=== PATIENT | female | born 1950 | race Caucasian/White ===

== ENCOUNTER → 2016-09-12 | Outpatient (CLI) | payer MEDICARE, BC ==
--- NOTE | 2016-09-12 17:13 | Diagnostic Imaging Report ---
EXAMINATION: DEXA scan. INDICATION: osteopenia TECHNIQUE: Bone mineral density estimated based on dual energy radiography over the lumbar spine and femoral necks, was performed. FINDINGS: The lumbar spine T-score is -2.2. This is 6% decreased density measurement compared to 06/07/2011. T score over the left femoral neck is -0.6 and on the right is -0.9. This is 6.7% improved density measurement compared to 2010. IMPRESSION: Osteopenia.. Dictated by: Dictated on workstation # [id number]
== END ==
LOC: RAD 09:04
PROVIDERS: ATTEND Family Medicine
DX: M85.88 Other specified disorders of bone density and structure, other site (principal)
CPT/HCPCS: 77080; 93005

== ENCOUNTER → 2016-10-24 | Outpatient (CLI) | payer MEDICARE ==
--- NOTE | 2016-10-24 16:09 | Diagnostic Imaging Report ---
PROCEDURE: Lung cancer screening CT chest without contrast. TECHNIQUE: Multiple contiguous axial images were obtained through the chest without the use of intravenous contrast. This is performed with a low-dose protocol. INDICATION: Currently asymptomatic patient with 30 pack years history of smoking COMPARISON: None FINDINGS: The lungs demonstrate no masses, significant consolidation, or suspicious nodule. Minimal nonspecific focal scarring is seen in the lingula with no significant interstitial lung disease. No emphysema changes. No bronchiectasis. The heart size is normal. No mediastinal mass or significantly enlarged lymph nodes seen. No obvious hilar lymphadenopathy adjacent to the unenhanced hilar vessels. No axillary lymphadenopathy. No pleural or pericardial effusion. Mild degenerative changes of the thoracic spine seen. IMPRESSION: No significant abnormality. Lung Rads Category 2. Benign findings. Recommendations: Annual screening low-dose CT scan. Dictated by: Dictated on workstation # [id number]
== END ==
LOC: RAD 12:25
PROVIDERS: ATTEND Family Medicine
DX: Z12.2 Encounter for screening for malignant neoplasm of respiratory organs (principal); Z87.891 Personal history of nicotine dependence

== ENCOUNTER → 2017-09-26 | Outpatient (CLI) | payer MEDICARE ==
--- NOTE | 2017-09-26 18:57 | Diagnostic Imaging Report ---
INDICATION: Routine screening. Comparison is made with prior study from 10/28/2014 and 08/13/2012. The current study was also evaluated with a Computer Aided Detection (CAD) system. FINDINGS: Scattered fibroglandular densities are identified bilaterally. Biopsy clip in the outer right breast is noted. There are benign calcifications bilaterally. No mass or malignant-appearing microcalcifications are seen. The axillae are unremarkable. IMPRESSION: No mammographic features suspicious for malignancy are identified. ACR BI-RADS Category 2: Benign findings. Result letter will be mailed to the patient. Note: At least 10% of breast cancer is not imaged by mammography. Dictated by: Dictated on workstation # [id number]
== END ==
LOC: RAD 10:00
PROVIDERS: ATTEND Family Medicine
DX: Z12.31 Encounter for screening mammogram for malignant neoplasm of breast (principal)
CPT/HCPCS: 77067

== ENCOUNTER 2018-11-11 10:00 | Outpatient (CLI) | payer MEDICARE ==
[~2018-11-11] VITALS: Ht 170.2 cm; Wt 83.9 kg
[2018-11-11] MEDS ORDERED: LEVO125T PO (10:41)
[2018-11-11] MEDS ORDERED: PANT20TA3 PO (10:41)
[2018-11-11] MEDS ORDERED: LEVO150T6 PO (12:50)
[2018-11-11] MEDS ORDERED: ACET-2650 PO (12:50)
== END 2018-11-11 12:59 | disposition home or self-care (01) ==
LOC: PREOP 10:00
PROVIDERS: ATTEND Internal Medicine
DX: Z01.818 Encounter for other preprocedural examination (principal)

== ENCOUNTER → 2018-11-11 | Outpatient (CLI) | payer MEDICARE ==
[~2018-11-11] VITALS: Ht 170.2 cm; Wt 81.7 kg
[~2018-11-11] MED LIST: ACET-2650 PO; DENOSUMAB 60 MG/1 ML (PROLIA) SQ SCH; LEVO125T PO; LEVO150T6 PO; PANT20TA3 PO
[2018-11-11 11:16] VITALS: BP 145/86
== END ==
LOC: SDC 10:15
PROVIDERS: ATTEND Family Medicine
DX: M81.0 Age-related osteoporosis without current pathological fracture (principal)
CPT/HCPCS: 96372

== ENCOUNTER 2018-11-13 06:55 | Day surgery (SDC) | payer MEDICARE ==
--- NOTE | 2018-10-28 17:50 | HISTORY AND PHYSICAL ---
DATE OF SERVICE: PANENDOSCOPY HISTORY AND PHYSICAL HISTORY OF PRESENT ILLNESS: The patient is a 68-year-old white female, referred by Dr. Corea for diagnostic EGD and screening colonoscopy. She was seen in the office on 10/26/2018. She had one other screening colonoscopy that was reportedly unremarkable by Dr. Walsh 11 years ago in 06/2007. She reports that she had a history of hiatal hernia, but on review of her past medical record, this was not mentioned on EGD performed by Dr. Walsh 10 years ago in 2008. She did have evidence for esophagitis, but without reported ulceration and was Helicobacter negative at that time with no other abnormalities being noted on his record. She states that she has had intermittent coughing, which was the reason given for her last EGD with burning epigastric symptoms that she just takes pantoprazole for on an as needed basis and intermittent antacid therapy that she does require most days of the week. She denies odynophagia or dysphagia and as noted reports no weight loss, melena or bright red blood per rectum. FAMILY HISTORY: She is not aware of any family history for GI tract malignancy including the stomach or colon. PAST MEDICAL HISTORY: Significant for Yoshi's thyroiditis, on replacement therapy. She had partial thyroidectomy, but did not reveal a malignancy and has been on thyroid replacement since. SOCIAL HISTORY: She is a retired insurance sales executive, who has 25 to 30 pack a year smoking history, but quit in 2002 with no significant alcohol intake reported. PHYSICAL EXAMINATION: GENERAL: Reveals a white female, who did not appear to be in acute distress. VITAL SIGNS: Blood pressure 126/80, weight 185.6 pounds. HEENT: Unremarkable. She has a Mallampati class 2 oropharyngeal configuration with no evidence for pharyngeal erythema or exudate. CHEST: Clear to auscultation. CARDIOVASCULAR: Reveals a regular rate and rhythm without murmur, S3 or S4. ABDOMEN: Soft, supple without mass, organomegaly or tenderness. No bruits are noted. Bowel sounds are positive. EXTREMITIES: Reveal no cyanosis, clubbing or edema. ASSESSMENT AND PLAN: The patient is set up for screening colonoscopy and diagnostic EGD due to history of gastroesophageal reflux with increase in coughing, which may be related. I thank you for the referral of this pleasant lady. Sincerely, Job ID: [id number] DocumentID: [id number] Dictated Date: 10/27/2018 14:15:24 College Athletic Director Date: 10/27/2018 14:36:04 Dictated By: ADIS ROSENTHAL MD
[~2018-11-13] VITALS: Ht 170.2 cm; Wt 83.9 kg
[~2018-11-13 06:55] MED LIST changes: -DENOSUMAB 60 MG/1 ML (PROLIA) SQ SCH
[2018-11-13] MEDS ORDERED: D5 LR IV SOLUTION 1,000 ML IV ONE (07:03)
[2018-11-13] MEDS ORDERED: MIDAZOLAM 2 MG/2 ML (VERSED) VIAL ONE ×3 (07:40)
[2018-11-13] MEDS ORDERED: fentaNYL INJECTION 100 MCG/2 ML AMP ONE (07:40)
[2018-11-13] MEDS ORDERED: HURRICAINE EXT TUBE (BENZOCAINE) ONE (07:41)
[2018-11-13] MEDS ORDERED: LIDOCAINE JELLY 2% 6 ML SYRINGE ONE (07:41)
--- NOTE | 2018-11-13 07:55 | Pre-Op Note & Conscious Sedat ---
Pre-Operative Progress Note H&P Reviewed The H&P was reviewed, patient examined and no changes noted. Date H&P Reviewed: Nov 13, 2018 Time H&P Reviewed: 07:40 Conscious Sedation Pre-Proced ASA Score 2 For ASA 3 and 4: Consider anesthesia and medical clearance. Also, for patients with a history of failed moderate sedation consider anesthesia. Airway Lungs Heart ASA score ASA 1: a normal healthy patient ASA 2: a patient with a mild systemic disease (mid diabetes, controlled hypertension, obesity ASA 3: a patient with a severe systemic disease that limits activity (angina, COPD, prior Myocardial infarction) ASA 4: a patient with an incapacitating disease that is a constant threat to life (CHF, renal failure) ASA 5: a moribund patient not expected to survive 24 hrs. (ruptured aneurysm) ASA 6: a declared brain- patient whose organs are being harvested. For emergent operations, add the letter E after the classification Mallampati Classification Grade 2 Sedation Plan Analgesia, Amnesia, Plan communicated to team members, Discussed options with patient/fam, Discussed risks with patient/fam The patient is an appropriate candidate to undergo the planned procedure, sedation, and anesthesia. The patient immediately re-assessed prior to indication. ADIS ROSENTHAL MD Nov 13, 2018 07:55
[2018-11-13] MEDS ORDERED: D5 LR IV SOLUTION 1,000 ML IV STA (08:07)
[2018-11-13 08:12] VITALS: BP 136/79
[2018-11-13] MEDS ORDERED: fentaNYL INJECTION 100 MCG/2 ML AMP IVP ONE (08:15)
[2018-11-13] MEDS ORDERED: MIDAZOLAM 2 MG/2 ML (VERSED) VIAL IVP ONE (08:15)
[2018-11-13] MEDS ORDERED: LIDOCAINE JELLY 2% 6 ML SYRINGE MM PRN (08:15)
[2018-11-13] MEDS ORDERED: HURRICAINE EXT TUBE (BENZOCAINE) XX PRN (08:15)
[2018-11-13 08:45] VITALS: BP 177/87
[2018-11-13 09:25] VITALS: BP 170/90
[2018-11-13 10:14] VITALS: BP 170/90
--- OUTSIDE RECORDS SUMMARY | 2018-11-13 11:13 | XMS REPORT | Continuity of Care Document ---
Author Organization Unknown Address Unknown Allergies Active Description Code Type Severity Reaction Onset Reported/Identified Relationship to Patient Clinical Status Yes No Known Drug Allergies [id number] Drug Allergy Unknown N/A 11/11/2018 Medications There is no data. Problems Date Dx Coded Attending Type Code Diagnosis Diagnosed By 10/28/2014 Ot V76.12 10/28/2014 Ot 786.2 10/28/2014 Ot V76.12 10/28/2014 Ot 733.90 10/28/2014 Ot V70.0 10/28/2014 Ot V76.12 11/22/2014 ALICENDER DOROHITMICHELLE S Ot V76.12 05/10/2015 ALICENDBULMARO DOROHITMICHELLE S Ot R06.00 05/10/2015 ALICENDER DOROHITMICHELLE S Ot R07.9 10/22/2016 ALICENDER DOROHITMICHELLE S Ot Z12.2 ENCNTR SCREEN FOR MALIGNANT NEOPLASM OF 10/25/2016 ALICENDER DO MICHELLE S Ot Z12.2 ENCNTR SCREEN FOR MALIGNANT NEOPLASM OF 10/25/2016 ALICENDER DO MICHELLE S Ot Z87.891 PERSONAL HISTORY OF NICOTINE DEPENDENCE 10/30/2016 ALICENDER DOROHITMICHELLE S Ot Z12.2 ENCNTR SCREEN FOR MALIGNANT NEOPLASM OF 10/30/2016 ALICENDER DO, MICHELLE S Ot Z87.891 PERSONAL HISTORY OF NICOTINE DEPENDENCE 11/14/2016 ALICENDER DO, MICHELLE S Ot Z12.2 ENCNTR SCREEN FOR MALIGNANT NEOPLASM OF 11/14/2016 ALICENDER DO MICHELLE S Ot Z87.891 PERSONAL HISTORY OF NICOTINE DEPENDENCE 09/18/2017 ALICENDER DOROHITMICHELLE S Ot M85.88 OTH DISRD OF BONE DENSITY AND STRUCTURE, 09/18/2017 ALICENDER DOROHITMICHELLE S Ot Z12.2 ENCNTR SCREEN FOR MALIGNANT NEOPLASM OF 09/18/2017 ALICENDER DO, MICHELLE S Ot Z87.891 PERSONAL HISTORY OF NICOTINE DEPENDENCE 09/19/2017 ALICENDER DO, MICHELLE S Ot M85.88 OTH DISRD OF BONE DENSITY AND STRUCTURE, 09/19/2017 ALICENDER DO, MICHELLE S Ot Z12.2 ENCNTR SCREEN FOR MALIGNANT NEOPLASM OF 09/19/2017 ALICENDER DO, MICHELLE S Ot Z87.891 PERSONAL HISTORY OF NICOTINE DEPENDENCE 09/19/2017 ALICENDER DO, MICHELLE S Ot Z12.31 ENCNTR SCREEN MAMMOGRAM FOR MALIGNANT NE 09/19/2017 ALICENDER DO, MICHELLE S Ot Z87.891 PERSONAL HISTORY OF NICOTINE DEPENDENCE 09/23/2017 ALICENDER DO, MICHELLE S Ot Z12.31 ENCNTR SCREEN MAMMOGRAM FOR MALIGNANT NE 09/23/2017 ALICENDER DO, MICHELLE S Ot M85.88 OTH DISRD OF BONE DENSITY AND STRUCTURE, 09/23/2017 ALICENDBULMARO BROCK, MICHELLE S Ot Z12.2 ENCNTR SCREEN FOR MALIGNANT NEOPLASM OF 09/23/2017 ALICENDER DO, MICHELLE S Ot Z87.891 PERSONAL HISTORY OF NICOTINE DEPENDENCE 09/23/2017 ALICENDER DO, MICHELLE S Ot Z12.31 ENCNTR SCREEN MAMMOGRAM FOR MALIGNANT NE 09/23/2017 ALICENDBULMARO DO, MICHELLE S Ot Z87.891 PERSONAL HISTORY OF NICOTINE DEPENDENCE 09/29/2017 ALICENDER DO, MICHELLE S Ot Z12.31 ENCNTR SCREEN MAMMOGRAM FOR MALIGNANT NE 10/02/2017 ALICENDER DO, MICHELLE S Ot Z12.31 ENCNTR SCREEN MAMMOGRAM FOR MALIGNANT NE 10/20/2017 ALICENDER DO, MICHELLE S Ot Z12.31 ENCNTR SCREEN MAMMOGRAM FOR MALIGNANT NE 10/22/2017 ALICENDER DO, MICHELLE S Ot Z87.891 PERSONAL HISTORY OF NICOTINE DEPENDENCE 10/27/2017 ALICENDBULMARO BROCK, MICHELLE S Ot J98.4 OTHER DISORDERS OF LUNG 10/27/2017 ALICENDBULMARO DO, MICHELLE S Ot Z12.2 ENCNTR SCREEN FOR MALIGNANT NEOPLASM OF 10/27/2017 ALICENDBULMARO BROCK, MICHELLE S Ot Z87.891 PERSONAL HISTORY OF NICOTINE DEPENDENCE 10/30/2017 ORENDER DO, MICHELLE S Ot J98.4 OTHER DISORDERS OF LUNG 10/30/2017 ORENDER DO, MICHELLE S Ot Z12.2 ENCNTR SCREEN FOR MALIGNANT NEOPLASM OF 10/30/2017 ORENDER DO, MICHELLE S Ot Z87.891 PERSONAL HISTORY OF NICOTINE DEPENDENCE 11/13/2017 ORENDER DO, MICHELLE S Ot J98.4 OTHER DISORDERS OF LUNG 11/13/2017 ORENDER DO, MICHELLE S Ot Z12.2 ENCNTR SCREEN FOR MALIGNANT NEOPLASM OF 11/13/2017 ORENDER DO, MICHELLE S Ot Z87.891 PERSONAL HISTORY OF NICOTINE DEPENDENCE 11/10/2018 ADIS ROSENTHAL MD Ot Z01.818 ENCOUNTER FOR OTHER PREPROCEDURAL EXAMIN 11/11/2018 ALICENDER DO, MICHELLE S Ot M85.88 OTH DISRD OF BONE DENSITY AND STRUCTURE, 11/11/2018 ORENDER DO, MICHELLE S Ot Z12.2 ENCNTR SCREEN FOR MALIGNANT NEOPLASM OF 11/11/2018 ALICENDER DO, MICHELLE S Ot Z87.891 PERSONAL HISTORY OF NICOTINE DEPENDENCE 11/11/2018 ORENDER DO, MICHELLE S Ot Z12.31 ENCNTR SCREEN MAMMOGRAM FOR MALIGNANT NE 11/11/2018 ALICENDER DO, MICHELLE S Ot J98.4 OTHER DISORDERS OF LUNG 11/11/2018 ORENDER DO, MICHELLE S Ot Z12.2 ENCNTR SCREEN FOR MALIGNANT NEOPLASM OF 11/11/2018 ALICENDER DO, MICHELLE S Ot Z87.891 PERSONAL HISTORY OF NICOTINE DEPENDENCE 11/11/2018 ADIS ROSENTHAL MD Ot Z01.818 ENCOUNTER FOR OTHER PREPROCEDURAL EXAMIN 11/11/2018 ADIS ROSENTHAL MD Ot Z01.818 ENCOUNTER FOR OTHER PREPROCEDURAL EXAMIN Procedures There is no data. Results There is no data. Encounters ACCT No. Visit Date/Time Discharge Status Pt. Type Provider Facility Loc./Unit Complaint 05/201711/11/2018 09:38:31 ACT Outpatient Michelle Corea. [id number] 11/11/2018 10:00:00 11/11/2018 12:59:00 DIS Outpatient ADIS ROSENTHAL MD [facility] PREOP COLONOSCOPY,EGD [id number] 10/15/2018 11:10:00 10/15/2018 23:59:59 CLS Preadmit ORENDER DO, MICHELLE S [facility] RAD SCREENING [id number] 10/24/2017 09:03:00 10/24/2017 23:59:59 CLS Outpatient ORENDER DO, MICHELLE S [facility] RAD ANNUAL SCREEN [id number] 09/26/2017 10:00:00 09/26/2017 23:59:59 CLS Outpatient ORENDER DO, MICHELLE S [facility] RAD SCREENING [id number] 10/24/2016 12:25:00 10/24/2016 23:59:59 CLS Outpatient ORENDER DO, MICHELLE S [facility] RAD SCREENING Z12.2 [id number] 10/15/2016 10:01:00 10/15/2016 23:59:59 CLS Preadmit ORENDER DO, MICHELLE S [facility] RAD SCREENING [id number] 09/12/2016 09:04:00 09/12/2016 23:59:59 CLS Outpatient ORENDER DO, MICHELLE S [facility] RAD OSTEOPENIA [id number] 04/18/2015 09:27:00 04/18/2015 23:59:59 CLS Outpatient ORENDER DO, MICHELLE S [facility] CARD [id number] 10/28/2014 07:33:00 10/28/2014 23:59:59 CLS Outpatient ORENDER DO, MICHELLE S [facility] RAD [id number] 11/13/2018 08:00:00 PEN Preadmit ADIS ROSENTHAL MD [facility] ENDO SCREENING/REFLUX/COUGH [id number] 11/11/2018 10:15:00 ACT Outpatient ORENDER DO, MICHELLE S [facility] SD M81.0 [id number] 08/13/2012 14:01:00 Document Registration [id number] 06/07/2011 08:43:00 Document Registration [id number] 01/02/2011 06:56:00 Document Registration [id number] 10/12/2009 08:03:00 Document Registration [id number] 10/12/2009 07:59:00 Document Registration
--- NOTE | 2018-11-13 16:51 | OPERATIVE REPORT ---
DATE OF SERVICE: 11/13/2018 [facility] ENDOSCOPY SUMMARY INDICATION FOR THE PROCEDURE: The patient underwent screening colonoscopy and diagnostic EGD due to history of cough with gastroesophageal reflux disease. PROCEDURE: The patient was placed in the left lateral decubitus position. Prior to undergoing colonoscopy, digital rectal evaluation was performed. Anal sphincter tone was normal and the perianal reflexes intact. No abnormalities, no additional inspection of the anal canal or distal rectal vault. The colonoscope was then inserted into the rectum and under direct visualization advanced to the cecum. The cecum was identified by identification of the ileocecal valve, cecal strap and appendiceal orifice. Photographic documentation was obtained. Careful inspection was made as the colonoscope was withdrawn. The patient tolerated the procedure well. FINDINGS: There is no evidence for internal or external hemorrhoids. Present in the distal rectum was diminutive hyperplastic appearing polyp. It was biopsied and cauterized with likely several mL blood loss. The rectum was otherwise unremarkable. The sigmoid colon revealed several small diverticulum without evidence for diverticulitis. No other sigmoid colonic abnormalities were appreciated. The descending colon, splenic flexure, transverse colon, hepatic flexure, ascending colon and cecum were unremarkable. ASSESSMENT: 1. Mild diverticular disease confined to the sigmoid colon was present without evidence for diverticulitis. 2. One diminutive hyperplastic appearing polyp was removed via hot forceps from the distal rectum. 3. The patient did have one small angiodysplastic appearing lesion adjacent the sigmoid colon measuring about 2 x 3 mm in size. There was no evidence for bleeding and the patient has no history of bleeding or reported iron deficiency anemia. For these reasons, it was left undisturbed. We then proceeded with EGD evaluation. The endoscope was inserted to the oral cavity and under direct visualization the esophagus was intubated. The scope was passed down the esophagus through the stomach and second portion of the duodenum. Careful inspection was made as the endoscope was withdrawn. The patient tolerated the procedure well. FINDINGS: Proximal, mid and distal esophagus was unremarkable. There was some erythema noted at the Z line without evidence for erosive esophagitis. Biopsy was obtained and submitted for histopathology. There was no obvious evidence to suggest Bautista's change. The cardia, fundus and antrum of the stomach were unremarkable with no evidence for gastritis or peptic ulcer disease. The pylorus, pyloric channel, duodenal bulb and second portion of duodenum were unremarkable as well. ASSESSMENT: Mild reflux esophagitis with erythema at the Z line with otherwise unremarkable EGD. There was no evidence to suggest hiatal hernia formation. Discussed the fact that her coughing very well may be related to reflux and advised as she has been taking pantoprazole in the morning that she take it twice a day and give it 2 months as it may take that long for coughing to settle down after adequate acid suppression. If there is no improvement in her coughing with b.i.d. therapy after 2 months she was told to decrease her pantoprazole back to 20 mg or 40 mg q.a.m. daily. I thank you for the referral of this pleasant lady, reassured by today's findings. Job ID: [id number] DocumentID: [id number] Dictated Date: 11/13/2018 10:09:21 Custom Frame Assembler Date: 11/13/2018 16:51:02 Dictated By: ADIS ROSENTHAL MD MTDD
== END 2018-11-13 09:30 | disposition home or self-care (01) ==
LOC: ENDO 06:55
PROVIDERS: ATTEND Internal Medicine
DX: Z12.11 Encounter for screening for malignant neoplasm of colon (principal); K62.1 Rectal polyp; K57.30 Diverticulosis of large intestine without perforation or abscess without bleeding; K55.20 Angiodysplasia of colon without hemorrhage; K21.0 Gastro-esophageal reflux disease with esophagitis; E06.3 Autoimmune thyroiditis; Z87.891 Personal history of nicotine dependence; Z79.899 Other long term (current) drug therapy
CPT/HCPCS: 88305

== ENCOUNTER → 2018-11-23 | Outpatient (CLI) | payer MEDICARE ==
--- NOTE | 2018-11-23 17:27 | Diagnostic Imaging Report ---
CT CHEST SCREENING WO TECHNIQUE: Low-dose unenhanced CT of the chest was performed according to the screening protocol. Coronal MIP and sagittal MPR reformats are created. Automatic exposure controls were utilized to keep dose as low as reasonably achievable. INDICATION: 68-year-old former smoker with 72-[id number]-cpku history of smoking. COMPARISON: Low-dose CT chest of 10/24/2017. FINDINGS: Pulmonary findings: No endoluminal nodule within the trachea. No pulmonary mass or consolidation. A few scattered pulmonary nodules are unchanged and compatible with old granulomatous infection. No new pulmonary nodule that would suggest clinically active lung cancer. Extrapulmonary findings: No pleural effusion. No axillary lymphadenopathy. No mediastinal, discrete hilar, or juxtaphrenic lymphadenopathy. Assessment for hilar lymphadenopathy is limited without IV contrast. The heart is not enlarged. No pericardial effusion. Normal-caliber thoracic aorta. No worrisome focal osseous lesions. IMPRESSION: No change in screening lung CT to indicate clinically active lung cancer. Lung-RADS category: 1 - Negative. Recommendations: Continued annual screening with low-dose CT in 12 months. Dictated by: Dictated on workstation # [id number]
== END ==
LOC: RAD 15:48
PROVIDERS: ATTEND Family Medicine
DX: Z12.2 Encounter for screening for malignant neoplasm of respiratory organs (principal); Z87.891 Personal history of nicotine dependence

== ENCOUNTER → 2019-05-19 | Outpatient (CLI) | payer MEDICARE ==
[~2019-05-19] MED LIST changes: +CATHETER FLUSH 10 ML SYR IV PRN; +HOLD METFORMIN - RECEIVED CONTRAST 20 ML VIAL IV SCH; +IOHEXOL 350 MG/ML 100 ML (OMNIPAQUE 350) VIAL IV ONE; +NS 100 ML (IVPB) BAG IV ONE
[2019-05-19 08:50] LABS: BUN/CREATININE RATIO 17; CREATININE SERUM 0.76 MG/DL (0.60-1.30); GFR ESTIMATED > 60
--- NOTE | 2019-05-19 10:43 | Diagnostic Imaging Report ---
PROCEDURE: CT neck soft tissue with contrast. TECHNIQUE: Multiple contiguous axial images were obtained through the neck after the administration of contrast. Auto Exposure Controls were utilized during the CT exam to meet ALARA standards for radiation dose reduction. INDICATION: Swollen tonsils. Painful to swallow. COMPARISON: None. Findings: No evidence of focal fluid collection or mass is visualized in the palatine tonsils. There is asymmetric fullness of the right tonsillar bed. There is cervical lymphadenopathy noted on the right, with a marker node in the right level 2 station measuring 2.1 x 1.3 cm (image 37 series 2). The parapharyngeal fat planes are preserved. The nasopharynx, hypopharynx, and laryngeal structures have a symmetric and unremarkable appearance. No retropharyngeal or prevertebral fluid collections are seen. The visualized intracranial contents demonstrate no evidence of pathologic intracranial enhancement or intracranial mass effect. Visualized orbital contents are unremarkable. The visualized paranasal sinuses are clear. The mastoids and middle ears are clear. The parotid and submandibular glands are unremarkable. No soft tissue mass or fluid collection demonstrated. The vascular structures the neck demonstrate no evidence of high-grade stenosis on this nondedicated exam. The visualized lung apices are clear. There are mild degenerative features within the cervical spine without CT evidence of an acute or suspicious osseous abnormality. Cervical spine alignment appears within normal limits. Impression: 1. Asymmetric fullness of the right palatine tonsil without discrete mass or fluid collection. This may represent inflammatory or infectious changes. Recommend correlation with physical exam. If symptoms persist, consider follow-up CT of the neck. 2. Cervical lymphadenopathy on the right, with a marker node in the right level 2 station measuring 2.1 x 3.1 cm. Given the above findings this is likely reactive. No necrotic lymph nodes are visualized in the neck. Dictated by: Dictated on workstation # [id number]
== END ==
LOC: RAD 07:33
PROVIDERS: ATTEND Otolaryngology Otolaryngology/Facial Plastic Surgery
DX: J35.8 Other chronic diseases of tonsils and adenoids (principal); R59.1 Generalized enlarged lymph nodes
CPT/HCPCS: 36415; 70491; 82565; 84520

== ENCOUNTER → 2019-05-19 | Outpatient (CLI) | payer MEDICARE ==
[~2019-05-19] VITALS: Ht 180.2 cm; Wt 83.9 kg
[~2019-05-19] MED LIST changes: -CATHETER FLUSH 10 ML SYR IV PRN; +DENOSUMAB 60 MG/1 ML (PROLIA) SQ SCH; -HOLD METFORMIN - RECEIVED CONTRAST 20 ML VIAL IV SCH; -IOHEXOL 350 MG/ML 100 ML (OMNIPAQUE 350) VIAL IV ONE; -NS 100 ML (IVPB) BAG IV ONE
[2019-05-19 08:03] VITALS: BP 137/82
[2019-05-19 08:13] VITALS: BP 137/82
== END ==
LOC: SDC 07:38
PROVIDERS: ATTEND Family Medicine
DX: M81.0 Age-related osteoporosis without current pathological fracture (principal)
CPT/HCPCS: 96372

== ENCOUNTER 2019-07-08 11:48 | Outpatient (CLI) | payer MEDICARE ==
[~2019-07-08] VITALS: Ht 170.2 cm; Wt 86.2 kg
[~2019-07-08 11:48] MED LIST changes: -DENOSUMAB 60 MG/1 ML (PROLIA) SQ SCH
[2019-07-08 11:57] VITALS: BP 164/89
[2019-07-08 12:15] LABS: BASOPHILS % (AUTO) 1 % (0-10); EOSINOPHILS # (AUTO) 0.2 10^3/uL (0.0-0.3); EOSINOPHILS % (AUTO) 4 % (0-10); HEMATOCRIT 44 % (35-52); HEMOGLOBIN 14.5 G/DL (11.5-16.0); LYMPHOCYTES # (AUTO) 1.9 X 10^3 (1.0-4.0); LYMPHOCYTES % (AUTO) 33 % (12-44); MEAN CORPUSCULAR HEMOGLOBIN 28 PG (25-34); MEAN CORPUSCULAR HGB CONC 33 G/DL (32-36); MEAN CORPUSCULAR VOLUME 86 FL (80-99); MEAN PLATELET VOLUME 9.3 FL (7.4-10.4); MONOCYTES # (AUTO) 0.5 X 10^3 (0.0-1.0); MONOCYTES % (AUTO) 8 % (0-12); NEUTROPHILS # (AUTO) 3.1 X 10^3 (1.8-7.8); NEUTROPHILS % (AUTO) 54 % (42-75); PLATELET COUNT 261 10^3/uL (130-400); RED CELL DISTRIBUTION WIDTH 14.6 % (10.0-14.5); WHITE BLOOD COUNT 5.7 10^3/uL (4.3-11.0)
[2019-07-08 12:35] LABS: BUN/CREATININE RATIO 18; CALCIUM 9.6 MG/DL (8.5-10.1); CARBON DIOXIDE 26 MMOL/L (21-32); CHLORIDE 103 MMOL/L (98-107); CREATININE SERUM 0.72 MG/DL (0.60-1.30); GFR ESTIMATED > 60; GLUCOSE 92 MG/DL (70-105); POTASSIUM 4.1 MMOL/L (3.6-5.0); SODIUM 140 MMOL/L (135-145)
--- NOTE | 2019-07-08 13:00 | Diagnostic Imaging Report ---
INDICATION: Preop for tonsillectomy. TIME OF EXAM: 12:19 p.m. COMPARISON: Comparison is made with prior chest 10/12/2009. FINDINGS: The heart size is normal. The pulmonary vascularity is unremarkable. The lungs are clear. No infiltrate, effusion or pneumothorax is detected. IMPRESSION: No acute cardiopulmonary process is detected. Dictated by: Dictated on workstation # [id number]
== END 2019-07-08 12:30 | disposition home or self-care (01) ==
LOC: PREOP 11:48
PROVIDERS: ATTEND Otolaryngology Otolaryngology/Facial Plastic Surgery
DX: Z01.812 Encounter for preprocedural laboratory examination (principal); Z01.810 Encounter for preprocedural cardiovascular examination; Z01.811 Encounter for preprocedural respiratory examination; J35.9 Chronic disease of tonsils and adenoids, unspecified
CPT/HCPCS: 36415; 71046; 80048; 85025; 87081; 93005

== ENCOUNTER → 2019-08-05 | Outpatient (CLI) | payer MEDICARE ==
[~2019-08-05] MED LIST changes: +2% Viscous Xylocaine PO; +AMOX250S5 PO; +HYDR15SO8 PO
--- NOTE | 2019-08-05 12:57 | Diagnostic Imaging Report ---
PROCEDURE: US Non-ob pelvis comp/trans. TECHNIQUE: Multiple realtime grayscale images were obtained of the pelvis in various projections endovaginally. Transabdominal imaging was also performed. INDICATION: Postmenopausal bleeding. TECHNIQUE: Transabdominal and transvaginal ultrasound of the pelvis. COMPARISON: None FINDINGS: The uterus measures 4.6 x 2.3 x 4.3 cm in size and appears retroflexed. The endometrium is not thickened, measuring 1 to 2 mm in size. No focal uterine masses are seen. The left ovary measures 1.7 x 0.7 x 0.9 cm. Vascularity appears present. No free fluid is seen. The right ovary is not well seen due to bowel gas. IMPRESSION: 1. No uterine masses or endometrial thickening is seen. 2. The right ovary is not seen. The left ovary is unremarkable. Dictated by: Dictated on workstation # [id number]
== END ==
LOC: RAD 11:49
PROVIDERS: ATTEND Family Medicine
DX: N95.0 Postmenopausal bleeding (principal)
CPT/HCPCS: 76830; 76856

== ENCOUNTER → 2020-01-13 | Outpatient (CLI) | payer MEDICARE | LOC: CARD 11:39 | PROVIDERS: ATTEND Internal Medicine Rheumatology | DX: R00.2 Palpitations (principal) | CPT/HCPCS: 93005 ==

== ENCOUNTER → 2020-01-31 | Outpatient (CLI) | payer MEDICARE ==
--- NOTE | 2020-01-31 15:41 | Diagnostic Imaging Report ---
INDICATION: Constipation. TECHNIQUE: Supine and upright view of the abdomen at 03:40 p.m. CORRELATION STUDY: None. FINDINGS: There is moderate severity stool retention disproportionately greater involving the proximal colon. No evidence of large fecal impaction. A few gas-filled loops of small bowel are present; however, no findings to suggest high-degree bowel obstruction. No concerning differential air-fluid levels. Visualized lung bases are clear. IMPRESSION: 1. Moderate severity constipation. No evidence of underlying bowel obstruction. Dictated by: Dictated on workstation # [id number]
== END ==
LOC: RAD 15:12
PROVIDERS: ATTEND Nurse Practitioner Family
DX: K59.00 Constipation, unspecified (principal); R10.9 Unspecified abdominal pain
CPT/HCPCS: 74019

== ENCOUNTER → 2020-02-04 | Outpatient (CLI) | payer MEDICARE ==
[~2020-02-04] MED LIST changes: +CATHETER FLUSH 10 ML SYR IV PRN; +HOLD METFORMIN - RECEIVED CONTRAST 20 ML VIAL IV SCH; +IOHEXOL 350 MG/ML 100 ML (OMNIPAQUE 350) VIAL IV ONE; +NS 100 ML (IVPB) BAG IV ONE
[2020-02-04 12:26] LABS: BUN/CREATININE RATIO 13; CREATININE SERUM 0.71 MG/DL (0.60-1.30); GFR ESTIMATED > 60
--- NOTE | 2020-02-04 14:08 | Diagnostic Imaging Report ---
PROCEDURE: CT abdomen and pelvis with contrast. TECHNIQUE: Multiple contiguous axial images were obtained through the abdomen and pelvis after administration of intravenous contrast. Auto Exposure Controls were utilized during the CT exam to meet ALARA standards for radiation dose reduction. INDICATION: Abdominal pain and constipation for two weeks. COMPARISON: No prior studies are available for comparison. FINDINGS: The lung bases are clear. Tiny low density in the dome of the right lobe of the liver is noted measuring 6 mm. This is too small to accurately characterize. There is generalized low density throughout the liver consistent with hepatic steatosis. The gallbladder is unremarkable. No biliary ductal dilatation is seen. The pancreas and spleen are unremarkable. No adrenal mass is detected. Kidneys are unremarkable. Aorta is non-aneurysmal. There is abnormal soft tissue masses identified in the retrocrural as well as central retroperitoneum consistent with lymphadenopathy. A left para-aortic node measures 3.3 x 3.8 cm. There is a fitz mass just inferior to the body of the pancreas as well. This measures 3.0 x 3.1 cm. There are numerous mesenteric masses consistent with mesenteric lymphadenopathy. No iliac or inguinal lymphadenopathy is identified. There is a fat-containing midline ventral hernia with defect measuring 2.1 cm. Bowel loops are normal caliber. There is no obstruction. There is moderate stool in the right colon. Bladder and uterus are unremarkable. No free fluid is identified. Bony structures are nonacute. IMPRESSION: 1. Retrocrural, retroperitoneal, and mesenteric lymphadenopathy. Features are concerning for lymphoma or other neoplasm. 2. Midline fat-containing ventral hernia. Dictated by: Dictated on workstation # [id number]
== END ==
LOC: RAD 11:53
PROVIDERS: ATTEND Family Medicine
DX: K43.9 Ventral hernia without obstruction or gangrene (principal); K59.00 Constipation, unspecified; R59.0 Localized enlarged lymph nodes
CPT/HCPCS: 36415; 74177; 82565; 84520

== ENCOUNTER → 2020-02-09 | Outpatient (CLI) | payer MEDICARE ==
[~2020-02-09] MED LIST changes: -CATHETER FLUSH 10 ML SYR IV PRN; -HOLD METFORMIN - RECEIVED CONTRAST 20 ML VIAL IV SCH; -IOHEXOL 350 MG/ML 100 ML (OMNIPAQUE 350) VIAL IV ONE; -NS 100 ML (IVPB) BAG IV ONE
--- NOTE | 2020-02-09 17:24 | Diagnostic Imaging Report ---
PROCEDURE: CT chest without contrast. TECHNIQUE: Multiple contiguous axial images were obtained through the chest without the use of intravenous contrast. Auto Exposure Controls were utilized during the CT exam to meet ALARA standards for radiation dose reduction. INDICATION: Gastric cancer. FINDINGS: There is chronic biapical pleural-parenchymal scarring. No suspicious lung mass or pulmonary nodularity. No chest effusion No findings of pneumonia. No evidence for hilar or mediastinal lymphadenopathy at this unenhanced exam. The axillae appear within normal limits. No suspicious bony lesion. Pathological upper abdominal lymphadenopathy again noted unchanged from recent dedicated abdominal CT. IMPRESSION: No acute chest pathology and no findings of thoracic involvement by metastatic disease. Dictated by: Dictated on workstation # [id number]
== END ==
LOC: RAD 13:45
PROVIDERS: ATTEND Family Medicine
DX: C16.9 Malignant neoplasm of stomach, unspecified (principal); R59.0 Localized enlarged lymph nodes; Z87.891 Personal history of nicotine dependence
CPT/HCPCS: 71250

== ENCOUNTER → 2020-02-15 | Outpatient (CLI) | payer MEDICARE ==
--- NOTE | 2020-02-15 16:49 | Diagnostic Imaging Report ---
INDICATION: Abdominal lymphadenopathy. The patient has a history of right tonsillar mass. Serum blood glucose level at the time of injection is 109 mg/dL. The patient was administered 14.4 mCi [id number] intravenously in the right antecubital location and PET imaging was performed from the top of the skull to mid thighs. Noncontrast CT was also performed for attenuation correction and anatomic correlation. COMPARISON is made with prior CT studies from 02/04/2020 and 02/09/2020. The visualized intracranial structures are unremarkable. There is an area of mildly increased metabolism along the left oropharyngeal wall with an SUV max of 4.2. Hypermetabolic lymph nodes in the mediastinum and right hilum are noted. Right hilar SUV max is 15.3. There are trace bilateral pleural effusions identified. No pulmonary parenchymal hypermetabolism is identified. Upper abdomen does show a nodular density along the surface of the anterior portion of the liver with an SUV max 7.8. Extensive retroperitoneal and mesenteric lymphadenopathy is seen showing marked hypermetabolism with SUV max of approximately 21. There is hazy increased density to the mesentery throughout the abdomen as well which does show hypermetabolism. There is moderate ascites in the pelvis. IMPRESSION: Hypermetabolic mediastinal and right hilar lymphadenopathy as well as extensive hypermetabolic lymphadenopathy in the abdomen and pelvis. This is likely owing to lymphoma. No other significant abnormality is seen. Dictated by: Dictated on workstation # [id number]
== END ==
LOC: RAD 10:35
PROVIDERS: ATTEND Family Medicine
DX: R59.0 Localized enlarged lymph nodes (principal)
CPT/HCPCS: 78815; A9552

== ENCOUNTER → 2020-02-24 | Outpatient (CLI) | payer MEDICARE ==
[~2020-02-24] MED LIST changes: +PANT20TA18 PO; -PANT20TA3 PO
== END | disposition home or self-care (01) ==
LOC: PREOP 05:33
PROVIDERS: ATTEND Surgery
DX: Z01.818 Encounter for other preprocedural examination (principal)